=== PATIENT | male | born 1935 | race Caucasian/White ===

== ENCOUNTER → 2023-11-12 12:27 | Outpatient (BNVA) | payer MEDICARE, SELFPAY | PROVIDERS: Visit Provider Nurse Practitioner Gerontology | DX: N40.1 Benign prostatic hyperplasia with lower urinary tract symptoms (principal); R33.8 Other retention of urine | CPT/HCPCS: 99205 ==

== ENCOUNTER 2023-11-12 14:15 | Outpatient (CLI) | payer MEDICARE, SELFPAY ==
[2023-11-12 22:55] LABS: PSA, Diagnostic 3.9 ng/mL (<=6.5)
== END 2023-11-12 14:16 | disposition home or self-care (01) ==
LOC: LBO 14:17
PROVIDERS: Visit Provider Nurse Practitioner Gerontology
DX: N40.0 Benign prostatic hyperplasia without lower urinary tract symptoms (principal); N40.1 Benign prostatic hyperplasia with lower urinary tract symptoms; R33.8 Other retention of urine
CPT/HCPCS: 36415; 84153

== ENCOUNTER → 2023-12-01 07:54 | Outpatient (BNVA) | payer MEDICARE, SELFPAY | PROVIDERS: Visit Provider Nurse Practitioner Gerontology | DX: N40.1 Benign prostatic hyperplasia with lower urinary tract symptoms (principal); R33.8 Other retention of urine; R30.0 Dysuria | CPT/HCPCS: 51702; 51798; 81003; 99213 ==

== ENCOUNTER 2023-12-01 18:59 | Outpatient (REF) | payer MEDICARE, SELFPAY | END 2023-12-01 19:00 | disposition home or self-care (01) | LOC: LBN 18:59 | PROVIDERS: Visit Provider Nurse Practitioner Gerontology | DX: N40.1 Benign prostatic hyperplasia with lower urinary tract symptoms (principal); R33.8 Other retention of urine; R30.0 Dysuria; R39.9 Unspecified symptoms and signs involving the genitourinary system | CPT/HCPCS: 87077; 87086; 87186 ==

== ENCOUNTER → 2023-12-10 08:49 | Outpatient (BNVA) | payer MEDICARE, SELFPAY | PROVIDERS: Visit Provider Nurse Practitioner Gerontology | DX: N40.1 Benign prostatic hyperplasia with lower urinary tract symptoms (principal); R33.8 Other retention of urine | CPT/HCPCS: 81003; 99214 ==

== ENCOUNTER 2023-12-24 07:11 | Observation (INO) | payer MEDICARE, SELFPAY ==
[2023-12-24] VITALS (20 sets, daily range): BP systolic 97–179; BP diastolic 60–85; PULSE 55–76; RESP 16–33; TEMP 36–36.7; O2SAT 93–98; BMI 22.6
[2023-12-24] MEDS: Lactated Ringers 1,000 ML 80 ML IV (08:15)
--- NOTE | 2023-12-24 08:40 | W.PM.HP.N ---
Date of service: 12/24/23 Time of Service: 08:40 Assessment and Plan Assessment and plan (1) Urinary retention due to benign prostatic hyperplasia: Status: Acute Assessment and plan: He has failed maximal medical therapy, so we will proceed with cystoscopy and transurethral resection of the prostate. We will make arrangements for him to stay overnight for continuous bladder irrigation. I would expect he goes home with his indwelling catheter and will give him a voiding trial early next week. History of Present Illness History of Present Illness Chief Complaint: Urinary retention Narrative: Riaz is an 88-year-old male with acute urinary retention. He has failed maximal medical therapy and he presents for transurethral resection of the prostate. His PSA is 3.9 ng/mL. On multiparameter prostate MRI, his prostate volume is calculated at 60 cc. He has no known bleeding disorders or healing difficulty. He has been on oral antibiotics leading up to the procedure. Review of Systems Narrative: No fevers or chills No vision change or dysphasia No diabetes or thyroid No shortness of breath, cough or hemoptysis No chest pain or palpitations No nausea, vomiting, hepatitis, ulcers, jaundice No seizures, strokes or peripheral neuropathy No bleeding disorders or anemia No gout PFSH All Active Problems Urinary retention due to benign prostatic hyperplasia (Acute) Hypertensive disorder (Chronic) Hyperlipidemia (Acute) Chronic kidney disease, stage III (moderate) (Acute) Cerebrovascular disease (Acute) Benign prostatic hyperplasia (Chronic) Atrial septal defect (Acute) Anemia (Chronic) Psychosexual dysfunction, unspecified (Acute) Rosacea (Acute) Sciatica (Acute) TIA (transient ischemic attack) (Acute) Surgical History Hx of appendectomy Hx of colonoscopy Social History Smoking/Tobacco Use Status: Never Smoking risk assessment performed?: Yes Alcohol Intake: current Alcohol Intake frequency: 0-2 drinks per day Alcohol type: beer Drug use: Never Substance use type: does not use Details: last ETOH 1 beer @ 1900 12/23/23 Housing: house Additional Social history: UTAP Meds Allergies and Home Medications Allergies Allergy/AdvReac Type Severity Reaction Status Date / Time iodine Allergy Unknown Other (See Verified 12/24/23 07:47 Comment) Home Medications ?Medication ?Instructions ?Recorded ?Confirmed ?Type acetaminophen 500 mg tablet 500 mg PO DAILY PRN 11/10/23 12/22/23 History (Tylenol Extra Strength) aspirin 81 mg tablet,delayed 81 mg PO DAILY 11/10/23 12/22/23 History release (Adult Aspirin Regimen) fenofibrate 120 mg tablet 145 mg PO DAILY 11/10/23 12/24/23 History folic acid 1 mg tablet 1 mg PO DAILY 11/10/23 12/22/23 History lisinopril 40 mg tablet 40 mg PO DAILY 11/10/23 12/24/23 History omeprazole 20 mg capsule,delayed 20 mg PO DAILY 11/10/23 12/24/23 History release finasteride 5 mg tablet (Proscar) 5 mg PO DAILY 11/12/23 12/24/23 History tamsulosin 0.4 mg capsule 0.8 mg PO DAILY 11/12/23 12/24/23 History ciprofloxacin HCl 250 mg tablet 250 mg PO BID #14 tabs 12/21/23 12/24/23 Rx Exam Const General: cooperative Neck Neck: supple Resp Effort & Inspection: normal respiratory effort Auscultation: clear to auscultation bilaterally Cardio Rate: regular rate Rhythm: regular rhythm GI Inspection: normal to inspection Palpation: soft and no masses Other: Smith catheter in place with catheter plug Neuro General: patient alert, patient awake and patient oriented x3 Results Last Vital Signs Temp 36 C L 12/24/23 07:32 Pulse 55 L 12/24/23 07:32 Resp 16 12/24/23 07:32 BP 179/84 H 12/24/23 07:32 Pulse Ox 97 12/24/23 07:32 Time Spent Time spent with Patient: <40 minutes Time was spent: other
--- NOTE | 2023-12-24 09:21 | W.ANESPRE ---
General Info Date of Service Date Performed: 12/24/23 Height: 5 ft 1 in Weight: 54.5 kg Body Mass Index (BMI): 22.6 Surgical Procedure: Operation Date: 12/24/23 08:55 Proposed Procedure Side Surgeon p Transurethral Resection Prostate Scotty Martines MD Actual Procedure Side Surgeon p Transurethral Resection Prostate Scotty Martines MD Pre-Op Diagnosis Post-Op Diagnosis Urinary retention due to benign prostatic hyperplasia: Meds Allergies and Home Medications Allergies Allergy/AdvReac Type Severity Reaction Status Date / Time iodine Allergy Unknown Other (See Verified 12/24/23 07:47 Comment) Home Medication ?Medication ?Instructions ?Recorded acetaminophen 500 mg tablet 500 mg PO DAILY PRN 11/10/23 (Tylenol Extra Strength) aspirin 81 mg tablet,delayed 81 mg PO DAILY 11/10/23 release (Adult Aspirin Regimen) fenofibrate 120 mg tablet 145 mg PO DAILY 11/10/23 folic acid 1 mg tablet 1 mg PO DAILY 11/10/23 lisinopril 40 mg tablet 40 mg PO DAILY 11/10/23 omeprazole 20 mg capsule,delayed 20 mg PO DAILY 11/10/23 release finasteride 5 mg tablet (Proscar) 5 mg PO DAILY 11/12/23 tamsulosin 0.4 mg capsule 0.8 mg PO DAILY 11/12/23 ciprofloxacin HCl 250 mg tablet 250 mg PO BID #14 tabs 12/21/23 Current Visit Medications: Current Medications Generic Name Dose Route Start Last Admin Trade Name Freq PRN Reason Stop Dose Admin Ringer's Solution 1,000 mls @ 80 mls/hr 12/24/23 06:00 12/24/23 08:15 IV 12/24/23 23:59 80 mls/hr INFUSION ASCENCION Administration Cefazolin Sodium/Dextrose 2 gm in 50 mls @ 100 mls/hr 12/24/23 06:00 Ancef Duplex IVPB 12/24/23 23:59 PREOP ASCENCION IV Miscellaneous Supplies 1 each 12/24/23 06:00 Iv Access IV 12/24/23 23:59 DIRECTED ASCENCION Sodium Chloride 0 ml 12/24/23 06:00 Normal Saline Flush 10 Ml Syr IV 12/24/23 23:59 PRN PRN Sodium Chloride 0 ml 12/24/23 06:00 Normal Saline 10 Ml Vial IJ 12/24/23 23:59 DIRECTED PRN Sterile Water 0 ml 12/24/23 06:00 Water,Injection,Sterile 10 Ml Vial IJ 12/24/23 23:59 DIRECTED PRN PFSH Active Problems Active Problems: Problem Status Onset Code Urinary retention due to benign prostatic hyperplasia Acute N40.1, R33.8 Hypertensive disorder Chronic I10 Hyperlipidemia Acute E78.5 Chronic kidney disease, stage III (moderate) Acute N18.30 Cerebrovascular disease Acute I67.9 Benign prostatic hyperplasia Chronic N40.0 Atrial septal defect Acute Q21.10 Anemia Chronic D64.9 Psychosexual dysfunction, unspecified Acute F52.9 Rosacea Acute L71.9 Sciatica Acute M54.30 TIA (transient ischemic attack) Acute G45.9 Surgical History Surgical History Hx of appendectomy Hx of colonoscopy Tobacco Smoking/Tobacco Use Status: Never Alcohol Alcohol Intake: current Alcohol intake frequency: 0-2 drinks per day Alcohol type: beer Substance Use Substance use: Never Substance use type: does not use Details: last ETOH 1 beer @ 1900 12/23/23 Vital Signs and Lab Results Vital Signs Most Recent Vital Signs in EMR: Most Recent Vital Signs Temp Pulse Resp BP Pulse Ox 36 C L 55 L 16 179/84 H 97 12/24/23 07:32 12/24/23 07:32 12/24/23 07:32 12/24/23 07:32 12/24/23 07:32 Lab Results Blood Type / Crossmatch: No Data to Display Complete Blood Count: No Data to Display Complete Metabolic Panel: No Data to Display Liver Function Panel: No Data to Display Coagulation Panel: No Data to Display Cardiac Panel: No Data to Display Arterial Blood Gas: No Data to Display Venous Blood Gas: No Data to Display Pancreas Panel: No Data to Display Thyroid Panel: No Data to Display Infectious Disease: No Data to Display Blood Cultures: No Data to Display Toxicology Panel: No Data to Display Anesthesia Assessment and Plan Anesthesia History Personal History: No History of Anesthesia Complications Family History: No Family History of Anesthesia Complications Exercise Tolerance Exercise Tolerance: Metabolic Equivalents>4 Pertinent Negatives Pertinent Negatives: No Symptoms of GERD Cardiac & Pulmonary Exam Cardiac Exam: Normal S1/S2 Heart Sounds Pulmonary Exam: Clear Bilateral Breath Sounds Implantable Cardiac Device Does patient have a Pacemaker or an ICD?: No Airway Exam Known Difficult Airway: No Mallampati Class: 2 Mouth Opening: Normal (> 3cm) Thyromental Distance: Greater than 3 cm Neck Range of Motion: Full ROM Neck Circumference: Normal Teeth Condition: Normal Dentition ASA Classification ASA Score: ASA 2 Emergency Case?: No NPO Status NPO Status: NPO Clears >2 hours, Solids >8 hours Anesthesia Plan Resuscitation Status: Full Code Anesthesia Technique: General Anesthesia Airway Planned: Endotracheal Tube Monitors Used: Standard Monitors
[2023-12-24] MEDS: ceFAZolin 2 GM/50 ML BAG IVPB (09:45)
[2023-12-24] MEDS: Lidocaine 2% Jelly 11 ML SYR (10:09)
--- NOTE | 2023-12-24 10:12 | PROST_PTH ---
PATIENT: Riaz Orozco LOC: U#:[id number] AGE/SX: 88/M ROOM: MS.215 RE12/24/[address]: Scotty Martines MD : [id number] BED: A DIS: 12/25/2023 SPEC #: [id number] RECD: 12/24/23 12:58 STATUS: SOUT REQ #: [id number] JOSH: 12/24/23 10:[address]: Scotty Martines DEPT: Surgical Specimen RECD BY: Kati De Oliveira ENTERED: 12/24/23 12:59 SP TYPE: PROST OTHR DR: Unknown,Unknown Tissues: 1 - PROSTATE CURRETTINGS Procedures: GROSS AND MICRO LEVEL 4 Comments: [id number]
--- NOTE | 2023-12-24 11:26 | W.PM.OP ---
Date of service: 12/24/23 Time of Service: 11:26 Operative Note Operative Note DATE OF PROCEDURE: 12/24/23 PRE-OP DIAGNOSIS: Urinary retention POST-OP DIAGNOSIS: same PROCEDURE: cystoscopy with TUR Prostate SURGEON: Scotty Martines ANESTHESIA TYPE: Local By Surgeon and General LMA/ETT Refer to Anesthesia Record ESTIMATED BLOOD LOSS: 300 PATHOLOGY: other (prostate chips) COMPLICATIONS: None Patient was transported to: PACU Implants: 22 Qatari coude tipped irrigating catheter with 50 cc sterile water in balloon Indications: This is an 88-year-old gentleman who has a history of urinary retention. He has failed maximal medical therapy. He presents for transurethral resection of the prostate Findings: large prostate with heavily trabeculated bladder. Multiple diverticuli present Procedure Description: The patient was given IV antibiotics and brought to the operating room on 12/24/2023. After successful induction of general anesthesia, he was placed in the dorsal lithotomy position. His indwelling urethral catheter was removed. His genitalia was then prepped and draped. Using a 24 Qatari resectoscope sheath, we performed cystoscopy. We did so with a 30 degree lens and a visual obturator. The pendulous, bulbar and membranous urethra appeared normal with no strictures. The prostatic urethra showed lateral lobe enlargement with no significant median lobe present. The bladder neck was entered and the bladder mucosa was inspected. The bladder was heavily trabeculated. There were multiple cellules and diverticuli. No papillary or nodular lesions were identified. We then utilized an [employer]ist resectoscope and bipolar cautery to perform transurethral resection of the prostate. We resected from the bladder neck out to the verumontanum. The depth of the resection was down to the prostatic capsule. All resected tissue was evacuated and sent to pathology for permanent section. We then switched to the vaporization button and vaporized and cauterized any remaining prostate tissue at the resection site. At the completion of the procedure, no arterial bleeding was identified. I filled the bladder with irrigant and removed the resectoscope. I then passed a 22 Qatari hematuria catheter through the urethra into the bladder. The catheter balloon was inflated with 50 cc of sterile water. Continuous bladder irrigation with saline was begun. I placed traction on the catheter until the irrigant became clear. The patient tolerated this procedure well with no complications. He was taken to the recovery room in stable condition.
[2023-12-24] MEDS: Lactated Ringers 1,000 ML 125 ML IV ×2 (12:55→20:25)
--- NOTE | 2023-12-24 13:39 | W.ANESPOSTOP ---
Postoperative Evaluation Date, Time and Location Date Performed: 12/24/23 Time Performed: 13:39 Patient Location: Day Surgery Unit Vital Signs Most Recent Imported Vital Signs: Most Recent Vital Signs Temp Pulse Resp BP Pulse Ox 36.6 C 70 24 126/66 96 12/24/23 11:56 12/24/23 11:56 12/24/23 11:56 12/24/23 11:56 12/24/23 11:56 Pain Score Most Recent Pain Score: Most Recent Pain Score Pain Level 0 12/24/23 11:52 Assessment Mental Status: Awake (Alert & Oriented to Patient Baseline) Airway and Respiratory Function: Patent airway with normal (patient baseline) respiratory exam Cardiovascular Function: Hemodynamically Stable Hydration Status: Adequately Hydrated Nausea & Vomiting: No Nausea or Vomiting Pain: Pt. Denies Any Pain Peripheral Nerve Block: Patient did not receive a nerve block
[2023-12-24] MEDS: Ketorolac 15 MG/ML VIAL IVP ×3 (14:59→23:52)
[2023-12-24] MEDS: Ciprofloxacin 500 MG TAB PO (20:25)
[2023-12-25] MEDS: Lactated Ringers 1,000 ML 125 ML IV (03:49)
[2023-12-25] MEDS: Ketorolac 15 MG/ML VIAL IVP (05:51)
[2023-12-25 06:58] LABS: Abs Immature Grans 0.04 10^3/uL (0.0-0.06); Absolute Basophil Count 0.03 10^3/uL (0.0-0.2); Absolute Eosinophil Count 0.01 10^3/uL (0.0-0.7); Absolute Lymphocyte Count 0.05 10^3/uL (1.2-3.4); Absolute Monocyte Count 0.16 10^3/uL (0.1-0.8); Absolute Neutrophil Count 11.15 10^3/uL (1.2-6.7); Basophils % 0.3 %; Eosinophils % 0.1 %; HCT 25.5 % (40.0-50.0); HGB 8.8 g/dL (13.5-17.5); Immature Grans % 0.3 %; Lymphocytes % 0.4 %; MCH 32.8 pg (27.0-33.0); MCHC 34.5 % (32.0-36.0); MCV 95 fL (80-95); Monocytes % 1.4 %; Neutrophils % 97.5 %; Platelet Count 184 10^3/uL (130-400); RBC 2.68 10^6/uL (4.36-5.78); RDW-SD 48.6 fL; WBC 11.44 10^3/uL (4.4-10.8)
[2023-12-25 07:12] LABS: Anion Gap 8.4 mmol/L (3-11); BUN 37 mg/dL (7-18); CO2 22.6 mmol/L (21.0-32.0); CREATININE 1.6 mg/dL (0.70-1.30); Chloride 109 mmol/L (98-107); Glucose 122 mg/dL (74-106); Potassium 4.1 mmol/L (3.5-5.1); Sodium 140 mmol/L (136-145)
--- NOTE | 2023-12-25 07:23 | W.PM.PROGNOT ---
Date of Service Date of service: 12/25/23 Time of Service: 07:23 Assessment and Plan Assessment and plan (1) Urinary retention due to benign prostatic hyperplasia: Status: Acute Assessment and plan: He has done quite well following his TURP. I will plan to discontinue his bladder irrigation and discontinue his IV fluid. We will place a catheter plug on the irrigation port of his catheter. We will get him up and moving and as long as we do not need to restart his bladder irrigation, we will plan to discharge him to home with the catheter in place. He will continue with his prostate medications until we remove his catheter next week. Subjective Subjective Interval history since last seen: The patient was quite comfortable overnight with no episodes of clot retention or abdominal pain He has been tolerating oral nutrition and medications. Exam Narrative Exam Narrative: He looks well His vital signs are documented elsewhere His bladder irrigation outflow is clear. I hand irrigated his catheter and no clots were evacuated He is awake and alert His lab studies are appropriate. His serum creatinine is stable compared to his preop levels from [facility] Objective Last Vital Signs Temp 36 C L 12/24/23 16:55 Pulse 70 12/24/23 11:56 Resp 16 12/24/23 16:55 BP 119/75 12/24/23 16:55 Pulse Ox 93 12/24/23 16:55 Laboratory Results - last 24 hr 12/25/23 06:38 WBC 11.44 H RBC 2.68 L Hgb 8.8 L Hct 25.5 L MCV 95 MCH 32.8 MCHC 34.5 RDW 14.0 Plt Count 184 MPV 11.0 Immature Gran % 0.3 Neutrophils % 97.5 Lymphocytes % 0.4 Monocytes % 1.4 Eosinophils % 0.1 Basophils % 0.3 Nucleated RBC % 0.0 Absolute Neutrophils 11.15 H Absolute Lymphocytes 0.05 L Absolute Monocytes 0.16 Absolute Eosinophils 0.01 Absolute Basophils 0.03 Sodium 140 Potassium 4.1 Chloride 109 H Carbon Dioxide 22.6 Anion Gap 8.4 BUN 37 H Creatinine 1.6 H Est GFR (CKD-EPI 2020) 41.70 Glucose 122 H Calcium 8.0 L Time Spent with Patient Time Spent with Patient: <25 minutes Time was spent: other
--- NOTE | 2023-12-25 07:30 | W.PM.DS.N ---
Date of service: 12/25/23 Time of Service: 09:22 DS: Diagnosis Discharge Diagnosis (1) Urinary retention due to benign prostatic hyperplasia: Status: Acute Discharge Plan Disposition Patient Disposition: Home Condition: Stable Discharge Details Reason For Visit: Urinary Retention Admit Date/Time: 12/24/23 07:11 Admit Provider: Scotty Martines Attending Provider: Scotty Martines Primary Care Provider: Unknown,Unknown Hospital Course Hospital Course: The patient had failed maximal medical therapy for his urinary retention, so he had an indwelling catheter. He was admitted and brought to the operating room on 12/24/2023 where he underwent a transurethral resection of the prostate. Following the procedure, and irrigating catheter was placed. Continuous bladder irrigation was maintained over the first 24 hours. By postoperative day #1, the irrigant was clear. No clots were evacuated on hand irrigation of the catheter. The catheter irrigation port was plugged and the patient's IV fluids were discontinued. He was observed for another hour or 2 in the urine output remained transparent. He is being discharged to home on postoperative day #1. Home Meds and New Rx's Prescriptions: No Action ciprofloxacin HCl 250 mg tablet 250 mg PO BID Qty: 14 0RF finasteride [Proscar] 5 mg tablet 5 mg PO DAILY aspirin [Adult Aspirin Regimen] 81 mg tablet,delayed release (DR/EC) 81 mg PO DAILY fenofibrate 120 mg tablet 145 mg PO DAILY folic acid 1 mg tablet 1 mg PO DAILY lisinopril 40 mg tablet 40 mg PO DAILY omeprazole 20 mg capsule,delayed release(DR/EC) 20 mg PO DAILY acetaminophen [Tylenol Extra Strength] 500 mg tablet 500 mg PO DAILY PRN tamsulosin 0.4 mg capsule 0.8 mg PO DAILY Discharge Instructions Additional Instructions: We will ask the patient to hold his aspirin until his follow-up visit He will continue with his 2 prostate medications (finasteride 5 mg daily and tamsulosin 0.8 mg daily) until his follow-up appointment It is recommended that he take a stool softener (Colace) daily to help prevent constipation A catheter plug will be applied to the irrigation port of the Smith The drainage port of the Smith catheter will be hooked to a leg bag as it was prior to your admission You will need towo follow-up appointments in the urology office. The first appointment is next week for a catheter removal. A second appointment will be in about 2 weeks. At the second appointment we we will review the biopsy results from the prostate. Referrals: Scotty Martines MD [ [facility] STAFF PHYSICIAN] - (The patient needs to follow-up appointments. The first appointment should be for catheter removal next week. The second appointment should be in about 2 weeks to discuss his surgical pathology.) Activity:: No lifting over 10 pounds Equipment/Supplies:: Smith catheter to leg bag Diet:: As Tolerated Discharge Orders Discharge Orders: Discharge Order (Routine); Ordered 12/25/23 Ordered By: Scotty Martines DS: Summary Time Spent with Patient providing and/or coordinating discharge services: Greater than 30 minutes Status at Discharge Functional status at discharge: independent ambulation Overall status at discharge: patient is progressing back to baseline Mental Status: mental status grossly normal Speech and Movement: speech and movement normal Mood: congruent mood Affect: normal affect Quality:SDOH Health Related Social Needs: No Data to Display Exam Narrative Exam Narrative: On the morning of discharge, he appears comfortable His vital signs are documented elsewhere in the chart His chest wall motion is normal. He is not short of breath at rest. His abdomen is soft with no guarding or rebound tenderness His continuous bladder irrigation outflow is clear. I hand irrigated the catheter and no clots were evacuated He is awake and alert Psych Mental Status: mental status grossly normal Speech and Movement: speech and movement normal Mood: congruent mood Affect: normal affect DS: Data Vitals/I&O Vitals and I&O: Vital Signs Temperature 36 C L 12/24/23 16:55 Temperature Source Tympanic 12/24/23 16:55 Pulse 70 12/24/23 11:56 Pulse Rhythm Regular 12/24/23 07:32 Pulse 72 12/24/23 11:56 Respiratory Rate 16 12/24/23 16:55 Respiratory Depth Normal 12/24/23 07:32 Blood Pressure 119/75 12/24/23 16:55 Blood Pressure Mean 80 12/24/23 11:56 Pulse Oximetry 93 12/24/23 16:55 Respiratory End-tidal CO2 26 12/24/23 11:56 Oxygen Delivery Method Room Air 12/24/23 16:55 Oxygen Flow Rate 0 12/24/23 16:55 Pain Level 0 12/24/23 16:55 Intake & Output 12/24/23 12/24/23 12/25/23 11:59 23:59 11:59 Intake Total 550 / 1986.5 1437.5 / 1986.5 925 / 925 Output Total 300 / 300 Balance 250 / 1687.5 1437.5 / 1687.5 925 / 925 Weight 54.5 kg Intake: IV 550 / 1987.5 1437.5 / 1987.5 925 / 925 Output: Estimated Blood Loss 300 / 300 Other: Urine Color Pale [place] Urine Appearance Hematuria Emesis Description None Data Completed and Pending Labs on day of discharge: Labs from last 24 hours 12/25/23 06:38 WBC 11.44 H RBC 2.68 L Hgb 8.8 L Hct 25.5 L MCV 95 MCH 32.8 MCHC 34.5 RDW 14.0 Plt Count 184 MPV 11.0 Immature Gran % 0.3 Neutrophils % 97.5 Lymphocytes % 0.4 Monocytes % 1.4 Eosinophils % 0.1 Basophils % 0.3 Nucleated RBC % 0.0 Absolute Neutrophils 11.15 H Absolute Lymphocytes 0.05 L Absolute Monocytes 0.16 Absolute Eosinophils 0.01 Absolute Basophils 0.03 Sodium 140 Potassium 4.1 Chloride 109 H Carbon Dioxide 22.6 Anion Gap 8.4 BUN 37 H Creatinine 1.6 H Est GFR (CKD-EPI 2020) 41.70 Glucose 122 H Calcium 8.0 L PFSH All Active Problems Urinary retention due to benign prostatic hyperplasia (Acute) Hypertensive disorder (Chronic) Hyperlipidemia (Acute) Chronic kidney disease, stage III (moderate) (Acute) Cerebrovascular disease (Acute) Benign prostatic hyperplasia (Chronic) Atrial septal defect (Acute) Anemia (Chronic) Psychosexual dysfunction, unspecified (Acute) Rosacea (Acute) Sciatica (Acute) TIA (transient ischemic attack) (Acute) Surgical History Hx of appendectomy Hx of colonoscopy Social History Smoking/Tobacco Use Status: Never Smoking risk assessment performed?: Yes Alcohol Intake: current Alcohol Intake frequency: 0-2 drinks per day Alcohol type: beer Drug use: Never Substance use type: does not use Details: last ETOH 1 beer @ 1900 12/23/23 Housing: house Additional Social history: UTAP Time Spent with Patient Time Spent with Patient: <45 minutes Time was spent: other
[2023-12-25 07:31] VITALS: BP 95/57; PULSE 93; RESP 16; TEMP 37.5; O2SAT 93
[2023-12-25] MEDS: Finasteride 5 MG TAB PO (08:15)
[2023-12-25] MEDS: Folic Acid 1 MG TAB PO (08:16)
[2023-12-25] MEDS: Omeprazole 20 MG CAPCR PO (08:16)
[2023-12-25] MEDS: Tamsulosin 0.4 MG CAPCR 0.8 MG PO (08:16)
[2023-12-25] MEDS: Fenofibrate, Micronized 145 MG TAB PO (08:17)
[2023-12-25] MEDS: Docusate Sodium 100 MG CAP PO (08:18)
[2023-12-25 08:31] VITALS: BP 102/59
[2023-12-25] MEDS: Ciprofloxacin 500 MG TAB PO (08:34)
--- NOTE | 2023-12-25 09:27 | PDOC.CMDIS ---
Date of service: 12/25/23 Time of Service: 09:27 LACE Index Scoring Tool Questions: Length of Stay (in days): 1 Was the patient admitted via the E.D.?: No Comorbidities: Cerebrovascular Disease and Liver or Renal Disease E.D. Visits: 0 Answers: Total Score: 6 Risk of Readmission: Low Risk Care Management Discharge Plan Reason for Hospitalization: Urinary Retention Discharge Plan: Discharge home with a plan to follow up with Urology next week. Follow up with PCP and discharge plan of care as instructed by Dr. Martines. No new services are ordered prior to discharge. Patient/Family Education Needs: Review discharge instructions, limitation, medications and plan to follow up with community providers. Discuss ask me three. SDOH Health Related Social Needs: No Data to Display
== END 2023-12-25 10:50 | disposition home or self-care (01) ==
LOC: PDS 12:22 → MS 12:23
PROVIDERS: Admitting Provider Urology; Visit Provider Urology
PROC: 0VT08ZZ Resection of Prostate, Via Natural or Artificial Opening Endoscopic (ICD-10-PCS; CPT 52601; principal; 2023-12-24 08:45)
DX: N40.1 Benign prostatic hyperplasia with lower urinary tract symptoms (principal); R33.8 Other retention of urine; N18.30 Chronic kidney disease, stage 3 unspecified; I12.9 Hypertensive chronic kidney disease with stage 1 through stage 4 chronic kidney disease, or unspecified chronic kidney disease; E78.5 Hyperlipidemia, unspecified; I67.9 Cerebrovascular disease, unspecified; Q21.10 Atrial septal defect, unspecified; D64.9 Anemia, unspecified; Z86.73 Personal history of transient ischemic attack (TIA), and cerebral infarction without residual deficits; M54.30 Sciatica, unspecified side
CPT/HCPCS: 52601; 36415; 80048; 88305; 96361; 96374; 96376; 85025; G0378; J0131; J0690; J1100; J1885; J2405; J2704

== ENCOUNTER → 2023-12-28 08:21 | Outpatient (BNVA) | payer MEDICARE, SELFPAY | PROVIDERS: Visit Provider Nurse Practitioner Gerontology | DX: N40.1 Benign prostatic hyperplasia with lower urinary tract symptoms (principal); R33.8 Other retention of urine; R50.9 Fever, unspecified | CPT/HCPCS: 99213 ==

== ENCOUNTER 2023-12-28 15:33 | Outpatient (CLI) | payer MEDICARE, SELFPAY ==
--- NOTE | 2023-12-28 15:15 | DI.RAD_ITS ---
Exam(s) XR CHEST 2V PA LATERAL EXAM: XR CHEST 2V PA LATERAL CLINICAL HISTORY: r/o pneumonia R50.9 FEVER TECHNIQUE: 2D digital imaging was performed. Two views. COMPARISON: No exams were available for comparison FINDINGS: HEART: Normal size. Aorta: Tortuous PULMONARY VASCULATURE: Normal. MEDIASTINUM: Unremarkable. LUNGS: Clear. PLEURAL SPACE: No pleural effusion or pneumothorax. BONE:Unremarkable for age. SOFT TISSUES: Unremarkable. IMPRESSION: No acute abnormality. DATA REPOSITORY: RADIATION DOSE DELIVERED:
== END 2023-12-28 15:53 ==
LOC: DI 15:35
PROVIDERS: Visit Provider Urology
DX: R50.9 Fever, unspecified (principal)
CPT/HCPCS: 71046

== ENCOUNTER → 2023-12-30 14:16 | Outpatient (BNVA) | payer MEDICARE, SELFPAY | PROVIDERS: Visit Provider Nurse Practitioner Gerontology | DX: Z48.816 Encounter for surgical aftercare following surgery on the genitourinary system (principal); N50.89 Other specified disorders of the male genital organs ==

== ENCOUNTER → 2024-01-12 14:54 | Outpatient (BNVA) | payer MEDICARE, SELFPAY | PROVIDERS: Visit Provider Urology | DX: Z48.816 Encounter for surgical aftercare following surgery on the genitourinary system (principal) ==